=== PATIENT | female | born 1960 | race Caucasian/White ===

== ENCOUNTER 2024-02-29 07:05 | Day surgery (SDC) | payer MEDICARE, OTHER, MEDICAID, SELFPAY ==
[2024-02-28 12:04] VITALS: BMI 28.9
[2024-02-29] VITALS (13 sets, daily range): BP systolic 101–121; BP diastolic 56–83; PULSE 50–64; RESP 11–24; TEMP 36.6–36.7; O2SAT 92–100
[2024-02-29] MEDS: MIDAZOLAM INJ 1 MG/ML VIAL 2 ML (ASD USE ONLY) 2 MG IV (07:56)
[2024-02-29] MEDS: fentaNYL CIT INJ 50 mCg/ML AMP 2ML (ASD USE ONLY) IV (07:56)
[2024-02-29] MEDS: DiphenhydrAMINE INJ 50 MG/ML VIAL 25 MG IV (07:56)
== END 2024-02-29 09:16 | disposition home or self-care (01) ==
PROVIDERS: PCP Family Medicine; Referring Provider Surgery; Visit Provider Surgery
PROC: 0DBE8ZX Excision of Large Intestine, Via Natural or Artificial Opening Endoscopic, Diagnostic (ICD-10-PCS; CPT 45380; principal; 2024-02-29 08:00)
DX: K57.31 Diverticulosis of large intestine without perforation or abscess with bleeding (principal); D12.0 Benign neoplasm of cecum; D12.3 Benign neoplasm of transverse colon; D12.2 Benign neoplasm of ascending colon
CPT/HCPCS: 44394; 44389; J1200; J2250; J3010

== ENCOUNTER 2024-04-20 10:03 | Inpatient (IN) | payer MEDICARE, MEDICAID, SELFPAY ==
--- NOTE | 2024-04-19 06:00 | EKG_ITS ---
[facility] Test Date: 2024-04-19 Pat Name: GERA COLON Department: Room: - Gender: Female [facility] Supervisor: ASHLEE : 1960 Requested By: Nicole Talley Order Number: [id number] Reading MD: Nicole Talley Measurements Intervals [place] Rate: 53 P: 65 [place]: 169 QRS: 10 QRSD: 93 T: 6 QT: 442 QTc: 415 Interpretive Statements SINUS BRADYCARDIA NONSPECIFIC ST & T-WAVE ABNORMALITY Compared to ECG 04/06/2019 11:48:16 No significant changes /store/S0/[id number].pdf
[2024-04-19 07:12] VITALS: BMI 29.4
[2024-04-19 09:47] LABS: Basophils # (Auto) 0.1 Thou/mm3 (0.0-0.2); Basophils % (Auto) 1 % (0-2.5); Eosinophils # (Auto) 0.1 Thou/mm3 (0.0-0.5); Eosinophils % (Auto) 2 % (0-10); Hemoglobin 12.3 g/dL (12.0-16.0); Immature Granulocytes % (Auto) 0 % (0-0); Immature Granulocytes Auto 0.01 Thou/mm3 (0.00-0.00); Lymphocytes # (Auto) 1.7 Thou/mm3 (1.0-4.8); Lymphocytes % (Auto) 33 % (10-50); Mean Corpuscular HGB Conc 32.4 g/dl (31.0-37.0); Mean Corpuscular Hemoglobin 28.2 pg (25.0-35.0); Mean Corpuscular Volume 87 fL (80-100); Monocytes # (Auto) 0.4 Thou/mm3 (0.0-0.8); Monocytes % (Auto) 8 % (0-12); Neutrophils # (Auto) 2.9 Thou/mm3 (1.8-7.7); Neutrophils % (Auto) 56 % (37-80); Nucleated Red Blood Cell % 0 /100 WBC (0); Platelet Count 206 Thou/mm3 (140-440); RDW Standard Deviation 52.9 fL (36.4-46.3); Red Blood Count 4.36 Miln/mm3 (4.00-5.20); White Blood Count 5.1 Thou/mm3 (3.6-11.0)
[2024-04-19 10:05] LABS: Alanine Aminotransferase 58 U/L (10-49); Albumin, Serum 4.3 gm/dL (3.4-4.8); Albumin/Globulin Ratio 1.7 (1.2-2.2); Alkaline Phosphatase 104 U/L (46-116); Anion Gap 7 (7-16); Aspartate Amino Transferase 51 U/L (0-34); BUN/Creatinine Ratio 18 Ratio (12-20); Bilirubin,Total 0.6 mg/dL (0.3-1.2); Blood Urea Nitrogen 11 mg/dL (9-23); Carbon Dioxide 30.8 mMol/L (20.0-31.0); Chloride 105 mMol/L (98-107); Creatinine (Component) 0.6 mg/dL (0.6-1.3); Estimated Creatinine Clearance 95.6 mL/min (>60); Globulin 2.5 gm/dL (2.3-3.5); Glucose 103 mg/dL (74-106); Osmolality,Calculated 284 (275-295); Potassium 3.4 mMol/L (3.4-5.1); Sodium 143 mMol/L (136-145); Total Protein 6.8 gm/dL (5.7-8.2); eGFR > 60 See Note
[2024-04-20] VITALS (16 sets, daily range): BP systolic 117–177; BP diastolic 33–99; PULSE 52–66; RESP 12–18; TEMP 35.7–36.9; O2SAT 94–100; BMI 29.6; BMI 35.0
[2024-04-20] MEDS: RINGERS LACTATED 1000 ML 1,000 ML 20 ML IV (10:59)
--- NOTE | 2024-04-20 15:05 | ESOP_ITS ---
Date of Procedure 04/20/24 Pre Op Diagnosis Diverticular disease Status post colostomy Post Op Diagnosis Diverticular disease Parastomal hernia Procedure Exploratory laparotomy, reversal of colostomy Right salpingo-oophorectomy Findings Significant adhesions from previous operations. Right tube and ovary was significantly adherent to the rectal stump. Patient was noted to have parastoma l hernia that was not incarcerated Procedure Description Patient is brought to the operating room in supine position. After administration of general endotracheal anesthesia, patient was placed in low lithotomy position. The colostomy site was closed with a pursestring suture using 0 Prolene. Patient's abdomen and perineum prepped and draped in standard surgical manner. A laparotomy incision was made over her previous scar and dissection was deepened into soft tissue. The abdominal cavity was entered. Patient was noted to have some adhesions from previous operation that was lysed. The small bowel was then retracted cephalad into the right upper quadrant. A Bookwalter retractor was placed for adequate exposure. Patient's uterus was a dherent to the rectal stump, adhesions were divided and the uterus was freed. The right ovary and tube was significantly adherent to the rectal stump, I elected to perform right salpingo-oophorectomy. The lateral attachment was divided with Enseal harmonic device. The tube was also ligated with the harmonic device and right salpingo-oophorectomy was performed. The sutures that were placed at the previous operation the rectal stump were then identified and the proximal aspect of rectal stump was mobilized for the anastomosis. At this point I turned my attention to the colostomy site. An elliptical incision was made around the colostomy site and the colostomy was circumferentially dissected out surrounding tissue. Patient was noted to have a parastomal hernia that was not incarcerated. The hernia sac was circumferentially dissected out surrounding tissue and excised. The colostomy site was then reduced. The end of colostomy was divided with SIMON stapling device. The end of descending colon was reaching the pelvis without any tension. The end of descending colon was opened, a pursestring suture using 2-0 Prolene applied. The anvil portion of the EEA stapling device was placed at the end of descending colon and the pursestring suture was tightened. Patient's rectum and anal canal were sequentially dilated. The EEA stapling device was placed through the rectum and was brought out just anterior to the rectal stump. The EEA stapling device was opened and connected to the anvil, care was taken to make sure orientation was appropriate without tension or any kinking. The stapling device was closed and fired. 2 well-formed donuts were retrieved. The integrity of the anastomosis was then checked. A rigid proctoscope was placed through the anal canal and air was insufflated. The pelvis was filled with warm saline, there was no evidence of any air leak assuring anastomosis was airtight. Air was removed and the rigid proctoscope was removed. Using 3-0 silk suture circumferential Lembert sutures were placed around the anastomosis to further secure the anastomosis. Abdomen and pelvis copiously and thoroughly washed and irrigated, all the fluids were suctioned and the suction fluid returned clear. Hemostasis was adequate and satisfactory. I then turned my attention to closure of the posterior layer of the colostomy site. The peritoneum and posterior abdominal fascia opening of the colostomy site were closed with interrupted [id number] sutures using 0 Prolene. The laparotomy incision was then closed. The fascia was reapproximated with interrupted sutures using 0 PDS as well as interrupted sutures with #1 Vicryl. The wound was washed and the skin was closed with tesha. The anterior abdominal fascial defect of colostomy site was then closed with interrupted [id number]-cp-aoivh sutures using 0 Prolene. The wound was washed and the skin was partially closed with tesha. Telfa katarina were placed between the stapler to act as a drain. Both incisions were covered with dry dressings and abdominal binder applied. Patient tolerated procedure well. She was placed in supine position and extubated. She was breathing spontaneously and without difficulty and was transferred to postanesthesia care in stable condition. Instruments, needles and sponge counts were reported to be correct x 2. Anesthesia GETA Pathology / specimen Other (Colostomy stump, right tube and ovary) Estimated Blood Loss 50 Condition Stable Disposition PACU Surgeon Nicole Talley MD Surgical Staff Operation Date: 04/20/24 12:15 Case Staff Anesthesiologist: Aldair Wang RN First Assistant: Vira Bello
--- NOTE | 2024-04-20 15:09 | SUR.PHASEI ---
1509 patient arrived to recovery resting comfortably in bed, on oxygen 6L via oxy mask with an oral airway in place, breathing unlabored, vital signs stable, dressing intact to abdomen; tesha, telfa, gauze, medipore tape, with abdominal binder, no bleeding noted, lung sounds clear upon auscultation, bilateral radial pulses present when palpated, urinary catheter 16F in place with leg secure; draining to gravity, report received from Harriett OCAMPO/Dr. Wang and Manan ROBERT
[2024-04-20] MEDS: KCL 20 mEq/L in D5-1/2NS 20 MEQ/1,000 ML BAG 60 MEQ IV (15:58)
[2024-04-20] MEDS: MORPHINE SULF 1 MG/ML PCA SYRINGE 30 ML PCA (16:07)
--- NOTE | 2024-04-20 18:00 | SUR.PHASEI ---
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 1800 Patient transported via bed to room 357 without incident.
[2024-04-20] MEDS: ASCORBIC ACID 250 MG TABLET 500 MG PO (20:24)
[2024-04-20] MEDS: ACETAMINOPHEN IVPB 1,000 MG/100 ML VIAL 250 MG IV ×2 (20:25→23:38)
[2024-04-20] MEDS: CEFOXITIN 2 GM in SODIUM CHLORIDE 0.9% (P) 50 ML IV ×2 (20:25→23:38)
[2024-04-20] MEDS: DOCUSATE SOD 100 MG CAPSULE PO (20:25)
[2024-04-21] VITALS (11 sets, daily range): BP systolic 115–150; BP diastolic 57–71; PULSE 52–92; RESP 12–20; TEMP 36.4–37.2; O2SAT 92–100
[2024-04-21] MEDS: LEVOTHYROXINE SODIUM 100 MCG TABLET 200 MCG PO (05:08)
[2024-04-21] MEDS: CEFOXITIN 2 GM in SODIUM CHLORIDE 0.9% (P) 50 ML IV (05:08)
[2024-04-21] MEDS: ACETAMINOPHEN IVPB 1,000 MG/100 ML VIAL 250 MG IV ×2 (05:09→12:04)
[2024-04-21] MEDS: ASCORBIC ACID 250 MG TABLET 500 MG PO ×2 (08:35→20:49)
[2024-04-21] MEDS: DOCUSATE SOD 100 MG CAPSULE PO ×2 (08:36→20:50)
[2024-04-21] MEDS: hydroCHLOROthiazide 12.5 MG CAPSULE 50 MG PO (08:37)
[2024-04-21] MEDS: Lisinopril 2.5 MG TABLET 10 MG PO (08:37)
[2024-04-21] MEDS: FLUoxetine HCL 10 MG CAPSULE 40 MG PO (08:38)
[2024-04-21] MEDS: ZINC SULFATE 220 MG CAPSULE PO (08:39)
[2024-04-21] MEDS: PANTOPRAZOLE INJ 40 MG VIAL IVP (08:46)
[2024-04-21] MEDS: KCL 20 mEq/L in D5-1/2NS 20 MEQ/1,000 ML BAG 60 MEQ IV (09:40)
--- NOTE | 2024-04-21 12:09 | PC.NURSE ---
Dr. Talley notified pt felt urge to pee, pushed and voided bypassing catheter. Stated ok to remove folwey catheter and will be in to see patient.
--- NOTE | 2024-04-21 12:29 | PC.NURSE ---
Dr. Talley in to see pt
--- NOTE | 2024-04-21 12:31 | PD.SURPROG ---
Documentation for date of: 04/21/24 Subjective Subjective Narrative: Patient is seen and examined. Pain is well-controlled. She denies nausea or vomiting. She has not passed flatus or bowel movement yet Exam Vital Signs Temp Pulse Resp BP Pulse Ox O2 Del Method O2 Flow Rate 98.2 F 56 L 18 118/64 99 Nasal Cannula 3 04/21/24 08:00 04/21/24 08:52 04/21/24 08:52 04/21/24 08:37 04/21/24 08:52 04/21/24 08:00 04/21/24 08:52 Constitutional Constitutional: no acute distress Routine Abdominal Exam Comments: Abdomen is soft and mildly distended. She does not have bowel sounds today. Incisions with dressings clean, dry and intact Assessment & Plan Assessment Additional comments: Postop day #1 status post exploratory laparotomy with reversal of colostomy, right salpingo-oophorectomy Plan Keep n.p.o. with IV fluids. Continue incentive spirometer. DC Hickman catheter and DC PIPE LINE INSPECTOR Procedures Procedures Exploratory laparotomy, reversal of colostomy Right salpingo-oophorectomy
[2024-04-21] MEDS: CEFOXITIN 2 GM in Sterile Water 10 ML IV ×3 (13:02→23:54)
--- NOTE | 2024-04-21 13:19 | PC.SS ---
Jeanna Mares is 64-year-old female admitted to Med-Surg for Ex Lap. SS conducted bedside contact with the patient to complete initial assessment and to discuss discharge planning. Patient confirmed demographic information. Patient identifies her dtrs Cristel Al [phone] and Germain Flaherty [phone] as her surrogate decision maker. Patient resides at home with her dtrs. Pt states she is able to complete all ADL?s independently; pt does have a walker and wheelchair if needed at home. Pts PCP is Dr. Calderon at [facility] and her pharmacy of choice is [facility] on [address]. DC options discussed and pt wishes to return home. Pts dtr will provide transportation upon DC. No further intervention required at this time, social insurance analyst would be available to address any further concerns. DC Plan: Home Contact: Cristel Al [phone] and Germain Flaherty [phone] PCP: Kvng
[2024-04-21] MEDS: MORPHINE SULF INJ 10 MG/ML VIAL 3 MG IVP ×3 (17:29→23:54)
[2024-04-22] VITALS (8 sets, daily range): BP systolic 131–149; BP diastolic 61–78; PULSE 65–71; RESP 16–92; TEMP 36.2–38.2; O2SAT 92–96
[2024-04-22] MEDS: KCL 20 mEq/L in D5-1/2NS 20 MEQ/1,000 ML BAG 60 MEQ IV (00:05)
[2024-04-22] MEDS: MORPHINE SULF INJ 10 MG/ML VIAL 3 MG IVP ×5 (05:22→22:29)
[2024-04-22] MEDS: CEFOXITIN 2 GM in Sterile Water 10 ML IV ×4 (05:22→23:23)
[2024-04-22] MEDS: LEVOTHYROXINE SODIUM 100 MCG TABLET 200 MCG PO (05:22)
[2024-04-22 06:43] LABS: Basophils % (Auto) 1 % (0-2.5); Eosinophils # (Auto) 0.2 Thou/mm3 (0.0-0.5); Eosinophils % (Auto) 2 % (0-10); Hematocrit 30.9 % (36.0-46.0); Hemoglobin 10.1 g/dL (12.0-16.0); Immature Granulocytes % (Auto) 0 % (0-0); Immature Granulocytes Auto 0.02 Thou/mm3 (0.00-0.00); Lymphocytes # (Auto) 1.2 Thou/mm3 (1.0-4.8); Lymphocytes % (Auto) 17 % (10-50); Mean Corpuscular HGB Conc 32.7 g/dl (31.0-37.0); Mean Corpuscular Hemoglobin 28.8 pg (25.0-35.0); Mean Corpuscular Volume 88 fL (80-100); Monocytes # (Auto) 0.5 Thou/mm3 (0.0-0.8); Monocytes % (Auto) 7 % (0-12); Neutrophils # (Auto) 5.3 Thou/mm3 (1.8-7.7); Neutrophils % (Auto) 73 % (37-80); Nucleated Red Blood Cell % 0 /100 WBC (0); Platelet Count 187 Thou/mm3 (140-440); RDW Standard Deviation 54.4 fL (36.4-46.3); Red Blood Count 3.51 Miln/mm3 (4.00-5.20); White Blood Count 7.2 Thou/mm3 (3.6-11.0)
[2024-04-22 07:20] LABS: Albumin, Serum 3.7 gm/dL (3.4-4.8); Anion Gap 5 (7-16); BUN/Creatinine Ratio 8 Ratio (12-20); Blood Urea Nitrogen 7 mg/dL (9-23); Calcium 8.3 mg/dL (8.3-10.6); Calcium (Corrected) 8.5 mg/dL (8.5-10.1); Carbon Dioxide 33.5 mMol/L (20.0-31.0); Chloride 100 mMol/L (98-107); Creatinine (Component) 0.9 mg/dL (0.6-1.3); Estimated Creatinine Clearance 69.7 mL/min (>60); Glucose 97 mg/dL (74-106); Magnesium 1.6 mg/dL (1.6-2.6); Osmolality,Calculated 273 (275-295); Phosphorous 2.6 mg/dL (2.4-5.1); Potassium 3.1 mMol/L (3.4-5.1); Sodium 138 mMol/L (136-145); eGFR > 60 See Note
[2024-04-22] MEDS: PANTOPRAZOLE INJ 40 MG VIAL IVP (08:29)
[2024-04-22] MEDS: FLUoxetine HCL 10 MG CAPSULE 40 MG PO (08:30)
[2024-04-22] MEDS: hydroCHLOROthiazide 12.5 MG CAPSULE 50 MG PO (08:30)
[2024-04-22] MEDS: DOCUSATE SOD 100 MG CAPSULE PO ×2 (08:31→20:54)
[2024-04-22] MEDS: Lisinopril 2.5 MG TABLET 10 MG PO (08:31)
[2024-04-22] MEDS: ZINC SULFATE 220 MG CAPSULE PO (08:31)
[2024-04-22] MEDS: ASCORBIC ACID 250 MG TABLET 500 MG PO ×2 (08:32→20:54)
[2024-04-22] MEDS: POTASSIUM CHLORIDE 20 mEq TABCR 40 MEQ PO (12:29)
[2024-04-22] MEDS: Magnesium Sulfate 2 GM Ivpb 2 GM/50 ML BAG IV (12:29)
--- NOTE | 2024-04-22 15:06 | PD.SURPROG ---
Documentation for date of: 04/22/24 Subjective Subjective Narrative: Patient is seen and examined. She is feeling better, pain is well controlled. She denies nausea or vomiting. She started passing flatus. Her Hickman was removed yesterday she has been voiding without difficulty Exam Vital Signs Temp Pulse Resp BP Pulse Ox O2 Del Method O2 Flow Rate 99.7 F 65 18 149/71 H 92 L Room Air 3 04/22/24 11:40 04/22/24 11:40 04/22/24 11:40 04/22/24 11:40 04/22/24 11:40 04/22/24 11:40 04/21/24 08:52 Constitutional Constitutional: no acute distress Routine Abdominal Exam Comments: Abdomen is soft and mildly distended. She has hypoactive bowel sounds. Incisions with dressings clean, dry and intact Assessment & Plan Assessment Additional comments: Postop day #2 status post exploratory laparotomy with reversal of colostomy, right salpingo-oophorectomy Plan Will start patient on clear liquids. Continue to ambulate and use incentive spirometer. Magnesium and potassium will be replaced Procedures Procedures Exploratory laparotomy, reversal of colostomy Right salpingo-oophorectomy
[2024-04-23] VITALS (10 sets, daily range): BP systolic 113–137; BP diastolic 59–83; PULSE 53–81; RESP 16–95; TEMP 36.2–37.1; O2SAT 92–98; BMI 34.9
[2024-04-23] MEDS: MORPHINE SULF INJ 10 MG/ML VIAL 3 MG IVP ×4 (02:33→20:18)
[2024-04-23] MEDS: CEFOXITIN 2 GM in Sterile Water 10 ML IV ×4 (05:23→23:23)
[2024-04-23] MEDS: LEVOTHYROXINE SODIUM 100 MCG TABLET 200 MCG PO (05:23)
[2024-04-23] MEDS: hydroCHLOROthiazide 12.5 MG CAPSULE 50 MG PO (10:17)
[2024-04-23] MEDS: Lisinopril 2.5 MG TABLET 10 MG PO (10:18)
[2024-04-23] MEDS: ZINC SULFATE 220 MG CAPSULE PO (10:19)
[2024-04-23] MEDS: FLUoxetine HCL 10 MG CAPSULE 40 MG PO (10:20)
[2024-04-23] MEDS: DOCUSATE SOD 100 MG CAPSULE PO ×2 (10:21→20:15)
[2024-04-23] MEDS: ASCORBIC ACID 250 MG TABLET 500 MG PO ×2 (10:21→20:15)
[2024-04-23] MEDS: PANTOPRAZOLE INJ 40 MG VIAL IVP (10:21)
--- NOTE | 2024-04-23 15:14 | ESPR_ITS ---
Documentation for date of: 04/23/24 Subjective Subjective Narrative: Patient is seen and examined. She is resting comfortably. Pain is well- controlled. She is tolerating clear liquids and passing flatus. No bowel movement yet Exam Vital Signs Temp Pulse Resp BP Pulse Ox O2 Del Method O2 Flow Rate 97.8 F 64 19 137/64 H 94 L Room Air 3 04/23/24 12:00 04/23/24 12:00 04/23/24 12:00 04/23/24 12:00 04/23/24 12:00 04/23/24 08:00 04/21/24 08:52 Constitutional Constitutional: no acute distress Routine Abdominal Exam Comments: Abdomen is soft and nondistended. Incisions are clean, dry and intact. She has active bowel sounds Assessment & Plan Assessment Additional comments: Postop day #3 status post exploratory laparotomy with reversal of colostomy, right salpingo-oophorectomy Plan Will advance to full liquids. Continue care as directed Procedures Procedures Exploratory laparotomy, reversal of colostomy Right salpingo-oophorectomy
[2024-04-24] VITALS: BP 122/72; PULSE 65; RESP 19; TEMP 36.6; O2SAT 96
[2024-04-24] MEDS: CEFOXITIN 2 GM in Sterile Water 10 ML IV ×4 (05:45→23:54)
[2024-04-24] MEDS: LEVOTHYROXINE SODIUM 100 MCG TABLET 200 MCG PO (05:45)
[2024-04-24 06:46] LABS: Basophils % (Auto) 1 % (0-2.5); Eosinophils # (Auto) 0.2 Thou/mm3 (0.0-0.5); Eosinophils % (Auto) 3 % (0-10); Hematocrit 35.4 % (36.0-46.0); Hemoglobin 11.7 g/dL (12.0-16.0); Immature Granulocytes % (Auto) 0 % (0-0); Immature Granulocytes Auto 0.01 Thou/mm3 (0.00-0.00); Lymphocytes # (Auto) 1.2 Thou/mm3 (1.0-4.8); Lymphocytes % (Auto) 19 % (10-50); Mean Corpuscular HGB Conc 33.1 g/dl (31.0-37.0); Mean Corpuscular Hemoglobin 28.7 pg (25.0-35.0); Mean Corpuscular Volume 87 fL (80-100); Monocytes # (Auto) 0.4 Thou/mm3 (0.0-0.8); Monocytes % (Auto) 6 % (0-12); Neutrophils # (Auto) 4.8 Thou/mm3 (1.8-7.7); Neutrophils % (Auto) 71 % (37-80); Nucleated Red Blood Cell % 0 /100 WBC (0); Platelet Count 236 Thou/mm3 (140-440); RDW Standard Deviation 52.6 fL (36.4-46.3); Red Blood Count 4.07 Miln/mm3 (4.00-5.20); White Blood Count 6.7 Thou/mm3 (3.6-11.0)
[2024-04-24 07:11] LABS: Albumin, Serum 4.1 gm/dL (3.4-4.8); Anion Gap 6 (7-16); BUN/Creatinine Ratio 4 Ratio (12-20); Blood Urea Nitrogen 5 mg/dL (9-23); Calcium 9.2 mg/dL (8.3-10.6); Calcium (Corrected) 9.2 mg/dL (8.5-10.1); Carbon Dioxide 34.8 mMol/L (20.0-31.0); Chloride 93 mMol/L (98-107); Creatinine (Component) 1.3 mg/dL (0.6-1.3); Estimated Creatinine Clearance 48.2 mL/min (>60); Glucose 124 mg/dL (74-106); Magnesium 1.7 mg/dL (1.6-2.6); Osmolality,Calculated 266 (275-295); Phosphorous 3.7 mg/dL (2.4-5.1); Potassium 3.4 mMol/L (3.4-5.1); Sodium 134 mMol/L (136-145); eGFR 46 See Note
[2024-04-24 08:00] VITALS: BP 130/69; PULSE 63; RESP 17; TEMP 36.5; O2SAT 99
--- NOTE | 2024-04-24 08:52 | PC.NURSE ---
[facility] downtime occurred on 04/24/24 from 0100 to 0700.
[2024-04-24] MEDS: FLUoxetine HCL 10 MG CAPSULE 40 MG PO (08:59)
[2024-04-24] MEDS: DOCUSATE SOD 100 MG CAPSULE PO ×2 (08:59→20:15)
[2024-04-24] MEDS: ASCORBIC ACID 250 MG TABLET 500 MG PO ×2 (08:59→20:15)
[2024-04-24] MEDS: PANTOPRAZOLE INJ 40 MG VIAL IVP (08:59)
[2024-04-24 09:00] VITALS: BP 130/69; PULSE 63
[2024-04-24] MEDS: Lisinopril 2.5 MG TABLET 10 MG PO (09:00)
[2024-04-24] MEDS: hydroCHLOROthiazide 12.5 MG CAPSULE 50 MG PO (09:00)
[2024-04-24] MEDS: ZINC SULFATE 220 MG CAPSULE PO (09:01)
[2024-04-24] MEDS: MORPHINE SULF INJ 10 MG/ML VIAL 3 MG IVP ×3 (09:11→18:29)
--- NOTE | 2024-04-24 09:47 | ESPR_ITS ---
Documentation for date of: 04/24/24 Subjective Subjective Narrative: Patient is seen and examined. She is resting comfortably. She is tolerating liquids without nausea or vomiting. She is passing flatus but no bowel movement yet Exam Vital Signs Temp Pulse Resp BP Pulse Ox O2 Del Method O2 Flow Rate 97.7 F 63 17 130/69 99 Room Air 3 04/24/24 08:00 04/24/24 09:00 04/24/24 08:00 04/24/24 09:00 04/24/24 08:00 04/24/24 08:00 04/21/24 08:52 Constitutional Constitutional: no acute distress Routine Abdominal Exam Abdominal: Present soft, normoactive bowel sounds and tenderness (Karli- incisional tenderness. Incisions are clean, dry and intact); Absent distended Assessment & Plan Assessment Additional comments: Postop day #4 status post exploratory laparotomy with reversal of colostomy, right salpingo-oophorectomy Plan Continue liquid diet until full return of GI function. Continue to ambulate and use incentive spirometer Procedures Procedures Exploratory laparotomy, reversal of colostomy Right salpingo-oophorectomy
--- NOTE | 2024-04-24 10:53 | PC.NURSE ---
Patient had large bowel movement this morning. Called and informed Doctor Mayank.
[2024-04-24 11:44] VITALS: BP 112/59; PULSE 60; RESP 17; TEMP 36.1; O2SAT 95
[2024-04-24 16:00] VITALS: BP 111/59; PULSE 60; RESP 12; TEMP 36.7; O2SAT 94
--- NOTE | 2024-04-24 16:21 | PC.SS ---
Follow up note: Pt had bowel movement today. Pt is on soft diet for tonight. Pt is on IV antibiotic. Pt will return home upon dc.
[2024-04-24 20:00] VITALS: BP 99/56; PULSE 60; RESP 18; TEMP 36.1; O2SAT 100
[2024-04-25] VITALS: BP 147/72; PULSE 64; RESP 17; TEMP 36.4; O2SAT 99
[2024-04-25 04:00] VITALS: BP 113/55; PULSE 61; RESP 15; TEMP 36.2; O2SAT 98
[2024-04-25] MEDS: MORPHINE SULF INJ 10 MG/ML VIAL 3 MG IVP ×2 (05:52→10:56)
[2024-04-25] MEDS: CEFOXITIN 2 GM in Sterile Water 10 ML IV (05:55)
[2024-04-25] MEDS: LEVOTHYROXINE SODIUM 100 MCG TABLET 200 MCG PO (06:03)
[2024-04-25 08:00] VITALS: BP 106/56; PULSE 59; RESP 18; TEMP 36.2; O2SAT 98
[2024-04-25] MEDS: PANTOPRAZOLE INJ 40 MG VIAL IVP (08:08)
[2024-04-25] MEDS: FLUoxetine HCL 10 MG CAPSULE 40 MG PO (08:08)
[2024-04-25 08:09] VITALS: BP 106/56; PULSE 59
[2024-04-25] MEDS: ZINC SULFATE 220 MG CAPSULE PO (08:09)
[2024-04-25] MEDS: Lisinopril 2.5 MG TABLET 10 MG PO (08:09)
[2024-04-25] MEDS: DOCUSATE SOD 100 MG CAPSULE PO (08:09)
[2024-04-25] MEDS: ASCORBIC ACID 250 MG TABLET 500 MG PO (08:09)
--- NOTE | 2024-04-25 10:45 | CHAP ---
Patient was visited by a Spiritual Care volunteer on 04/25/2024 between 0900 and 1017 and received comfort, encouragement and/or prayer.
--- NOTE | 2024-04-25 11:47 | PD.SURDS ---
Planned Discharge Date 04/25/24 DS: Providers Provider Date of admission: 04/20/24 10:03 Primary care physician: Raji Calderon MD Admitting Provider: Nicole Talley MD Attending Provider on Admission: Nicole Talley MD Attending Provider on DC: Nicole Talley MD Discharging Provider: Nicole Talley MD Diagnosis Problem List Completed Was Problem List Reviewed/Reconciled?: Yes Hospital Course Patient had sigmoid colectomy with diverting colostomy for history of rectal prolapse and diverticular disease. She was scheduled and underwent exploratory laparotomy, reversal of colostomy, right salpingo-oophorectomy (for further details please refer to the operative report). Postoperatively her Hickman catheter was removed on postop day #1, she was able to void without difficulty. She started passing flatus on postop day #2, she was started on clear liquids and her diet was gradually advanced. She started having bowel movements. She has been voiding and ambulating without difficulty. She has remained afebrile and hemodynamically stable throughout hospitalization. Her incisions are clean, dry and intact. She is being discharged home in stable condition. Status at Discharge Functional status at discharge: independent ambulation Overall status at discharge: patient is back to baseline Exam Vital Signs Temp Pulse Resp BP Pulse Ox O2 Del Method O2 Flow Rate 97.2 F 59 L 18 106/56 L 98 Room Air 3 04/25/24 08:00 04/25/24 08:09 04/25/24 08:00 04/25/24 08:09 04/25/24 08:00 04/25/24 08:00 04/21/24 08:52 Constitutional Constitutional: no acute distress Routine Abdominal Exam Abdominal: Present soft, normoactive bowel sounds and surgical scars (Laparotomy incision and colostomy reversal site incisions are healing well without evidence of infection at this time); Absent tenderness or distended Discharge Plan Plan Patient Disposition: HOME (Self Care) Prescriptions/Referrals Prescriptions/Med Rec: New ascorbic acid (vitamin C) [Vitamin C] 250 mg Tablet 500 mg PO BID Qty: 60 0RF docusate sodium 100 mg Capsule 100 mg PO BID Qty: 60 0RF zinc sulfate 50 mg zinc (220 mg) Capsule 220 mg PO QDAY Qty: 30 0RF hydrocodone-acetaminophen 5-325 mg tablet 1 tab PO Q6H MDD 4 PRN (Reason: pain (scale score 7-10)) Qty: 30 0RF Continued lisinopril 10 MG tablet 10 mg PO QDAY Qty: 0 hydrochlorothiazide 25 MG tablet 50 mg PO QAM Qty: 0 levothyroxine 200 mcg Tablet 200 mcg PO QDAY Qty: 0 fluoxetine 40 mg capsule 40 mg PO QDAY atorvastatin 10 mg tablet 10 mg PO QDAY ascorbic acid (vitamin C) [Vitamin C] 250 mg tablet 250 mg PO BID Patient Comments: TAKE ONE TABLET BY MOUTH TWICE DAILY VITAMIN buspirone 10 mg tablet 10 mg PO BID PRN (Reason: Anxiety) omeprazole 20 mg capsule,delayed release(DR/EC) 20 mg PO QDAY Patient Comments: TAKE ONE CAPSULE BY MOUTH EVERY MORNING BEFORE MEALS HEARTBURN OR FOR GASTRITIS zinc sulfate 50 mg zinc (220 mg) capsule 220 mg PO QDAY Patient Comments: TAKE 1 CAPSULE BY MOUTH EVERY DAY docusate sodium 100 mg capsule 100 mg PO BID Qty: 60 0RF Referrals: Raji Calderon MD [Primary Care Provider] - Patient/Caregiver Discharge Instructions Discharge Activity: activity as tolerated Print Language: Georgian Activity Restrictions/Additional Instructions: May shower in 24 hours. Cover colostomy site incision with dry dressings daily. Wear abdominal binder at all times. Avoid lifting, straining, pulling or pushing for 8 weeks. May take over the counter laxatives if no bowel movement in 2 days. Follow up with Dr. Talley in 2 weeks, call [phone] for an appointment. May have clear liquids, advance as tolerated. Stand Alone Forms: [facility] Award Info., Patient Portal Info Letter Discharge Order Discharge Orders: Discharge (Routine); Ordered 04/25/24 Ordered By: Nicole Talley Procedures Procedure Date 04/20/24 Procedures Exploratory laparotomy, reversal of colostomy Right salpingo-oophorectomy
[2024-04-25 12:00] VITALS: BP 110/61; PULSE 110; RESP 18; TEMP 36.3; O2SAT 98
[2024-04-25 13:31] VITALS: BP 126/84; PULSE 84; RESP 18; TEMP 36.3; O2SAT 98
== END 2024-04-25 13:41 | disposition home or self-care (01) | DRG 331 ==
LOC: S2W1 14:45 → S3NX 18:14
PROVIDERS: Anesthesiology; Admitting Provider Surgery; PCP Family Medicine; Visit Provider Surgery
PROC: 0DBE0ZZ Excision of Large Intestine, Open Approach (ICD-10-PCS; CPT 49000; principal; 2024-04-20 12:00)
DX: Z43.3 Encounter for attention to colostomy (principal); K57.30 Diverticulosis of large intestine without perforation or abscess without bleeding; K43.5 Parastomal hernia without obstruction or gangrene; N73.6 Female pelvic peritoneal adhesions (postinfective); E11.9 Type 2 diabetes mellitus without complications; I10 Essential (primary) hypertension; E89.0 Postprocedural hypothyroidism; Z86.0100 Personal history of colon polyps, unspecified; F17.200 Nicotine dependence, unspecified, uncomplicated; Z90.49 Acquired absence of other specified parts of digestive tract; Z79.899 Other long term (current) drug therapy; Z79.890 Hormone replacement therapy
CPT/HCPCS: 36415; 80053; 80069; 83735; 85025; 93005; A4216; A4217; A4649; J0131; J0694; J1100; J2250; J2270; J2405; J2470; J2704; J3010; J3475; J3480; J3490; J7050; J7120; A9270